=== PATIENT | female | born 2000 | race Caucasian/White ===

== ENCOUNTER 2023-03-22 14:30 | Inpatient (IN) ==
--- NOTE | 2023-03-22 14:37 | ED Triage Note ---
Date of Service March 22, 2023 History of Present Illness This patient was briefly evaluated while in triage. An abbreviated physical exam was performed. This patient is a 22-year-old Female who presents to the ED for evaluation of right lower abdominal pain, fevers, and vomiting. Seen in ED in [place] last week and diagnosed and treated for UTI. Suspected to have UPJ obstruction. She was referred to ED by Dr. Lockwood after being seen in his office just prior to arrival for admission and further management. Physical Exam Constitutional: alert and oriented x3. mild distress secondary to pain. Respiratory: lungs are clear to auscultation without wheezes, rhonchi, or rales bilaterally. equal chest rise. normal respiratory effort, no accessory muscle use. Cardiovascular: normal heart sounds without murmur. regular rate and rhythm. GI: abdomen is soft, nondistended. Tender to palpation RLQ. nl bowel sounds present throughout. No palpable masses. No rebound tenderness or guarding. R CVA tenderness Psych:appropriate mood and affect. Initial orders for labs and / or imaging were placed and patient was placed in the waiting area until a bed is available. Please see further documentation for the full ED course.
[2023-03-22 15:11] LABS: Basophils # (auto) 0.06 K/uL (0-0.2); Basophils % (auto) 0.5 %; Eosinophils # (auto) 0.11 K/uL (0-0.50); Hematocrit (blood only) 33.3 % (37.0-47.0); Hemoglobin 11.2 g/dl (12.0-16.0); Immature Granulocytes # (auto) 0.12 K/uL (0.01-0.20); Lymphocytes # (auto) 0.97 K/uL (1.2-3.4); Lymphocytes % (auto) 8.5 %; Mean Corpuscular Hemoglobin 30.9 pg (25.0-34.0); Mean Corpuscular Hgb Conc 33.6 g/dL (32.0-36.0); Mean Corpuscular Volume 91.7 fL (80.0-100.0); Mean Platelet Volume 9.8 fL (9.4-12.4); Monocytes # (auto) 1.14 K/uL (0.11-0.59); Monocytes % (auto) 9.9 %; Neutrophils # (auto) 9.07 K/uL (1.40-6.50); Neutrophils % (auto) 79.1 %; Platelet Count 283 K/uL (130-400); RDW Coefficient of Variation 13.1 % (11.5-14.5); RDW Standard Deviation 43.9 fL (36.4-46.3); Red Blood Count 3.63 M/uL (4.20-5.40); White Blood Count 11.47 K/ul (4.8-10.8)
[2023-03-22 15:25] LABS: Albumin Globulin Ratio 0.9 (0.9-2); Albumin Level 3.5 gm/dl (3.4-5.0); BUN Creatinine Ratio 13.4 (10-20); Bilirubin,Total 0.4 mg/dl (0.2-1.0); Calcium 9.2 mg/dl (8.6-10.3); Creatinine Clr Calc Pharmacy 102.2 ml/min; Est GFR (African American) 119.4 ml/min; Potassium 3.8 mmol/L (3.5-5.1); Total Protein 7.5 gm/dl (6.0-8.3)
[2023-03-22] MEDS ORDERED: ONDANSETRON INJ 2 MG/ML 2 ML VIAL IV STA (16:46)
[2023-03-22] MEDS ORDERED: SODIUM CHLORIDE 0.9% 1000ML 1,000 ML IV ONE ×2 (16:46→17:08)
[2023-03-22] MEDS ORDERED: ACETAMINOPHEN 1,000 MG/100 ML VIAL IV STA (16:46)
[2023-03-22] MEDS ORDERED: MoRPHine SULFATE 4 MG/ML 1 ML CARP\\VIAL IV STA (16:46)
--- NOTE | 2023-03-22 16:59 | Emergency Department Note ---
History of Present Illness General Chief complaint: Illness Stated complaint: KIDNEY BLOCKAGE Time Seen by Provider: 03/22/23 16:30 History of Present Illness 22 year old female who presents to ED today following referral by Dr. Lockwood, Urology, for evaluation of right flank pain, fevers, and vomiting. Patient po white being evaluated at [facility] ED on Wednesday for similar symptoms. Work up including CT abd/pelvis demonstrated chronic right UPJ obstruction and was placed on Cefuroxime for presumed UTI. She was referred to Urology for further management of UPJ obstruction. She was seen in Dr. Lockwood's office this afternoon with continued right flank pain and fevers prompting ED referral. She reports taking the prescribed antibiotic as instructed. She has also been taking prescribed Percocet without much relief in her pain. Pain remains in the right flank with radiation into her lower abdomen. Fevers/chills, vomiting started this past Wednesday. Home Medications Medication Instructions Recorded Confirmed Type cefuroxime axetil 500 mg tablet 500 mg PO BID 03/22/23 03/22/23 History hydrocodone 5 mg-acetaminophen 325 1 tab PO BID PRN Pain 03/22/23 03/22/23 History mg tablet Allergies Allergy/AdvReac Type Severity Reaction Status Date / Time No Known Allergies Allergy Unverified 03/22/23 13:27 Past Med/Surg History Medical History No significant medical problems Surgical History No significant past surgical history Social History Smoking Status: Never smoker Second Hand Exposure: No; Do You Dip or Chew Tobacco: No; Tobacco Cessation Education Requested by Patient: No Hx Alcohol Use: No Hx Substance Use: No Preferred Language: Romanian Communication Ability: Effective Customer Service Representative Required: No Beliefs That Will Affect Care: None Current Living Situation: Family and Other Current Living Situation Comment: college student , [place] Other Information That Helps Us Care for You: No Feels Safe at Home: Yes Safety Concerns: Feels Safe At This Time Assistive Devices: None Physical Exam Vital Signs Vital Signs - 24 hr 03/22/23 14:34 03/22/23 17:02 Temperature 37.9 C H 39.4 C H Temperature Source Oral Oral Pulse Rate 108 H Pulse Rate [Finger] 105 H Respiratory Rate 20 18 Respiratory Effort / Characteristics Non-Labored Spontaneous Respiratory Depth Normal Blood Pressure 116/76 Blood Pressure [Right Arm] 124/72 Blood Pressure Mean 89 Blood Pressure Mean [Right Arm] 89 Pulse Oximetry 98 100 Oxygen Delivery Method Room Air Room Air Sepsis Recent Fever Within 48 Hours Yes Sepsis New/Unexplained Change in Mental Status N/A Sepsis Action Taken by Nursing No Action Required Constitutional: alert and oriented x3. moderate distress secondary to pain. Ill appearing HEENT: normocephalic, atraumatic. normal conjunctiva.PERRLA. EOM's grossly intact. TMs pearly sneed without effusion. Pharynx pink without exudate. Tonsils nonenlarged. Mucus membranes moist Respiratory: lungs are clear to auscultation without wheezes, rhonchi, or rales bilaterally. equal chest rise. normal respiratory effort, no accessory muscle use. Cardiovascular: normal heart sounds without murmur. regular rate and rhythm. GI: abdomen is soft, nondistended. Diffuse lower abdominal tenderness, RLQ > L. No palpable masses. No rebound tenderness or guarding. R CVA tenderness Psych:appropriate mood and affect. Course Administered Medications Acetaminophen (Acetaminophen 325 Mg Tab) 650 mg PO Q4H PRN PRN Reason: Pain or Fever Stop: 04/21/23 20:39 Last Admin: 03/22/23 23:36 Dose: 650 mg Documented By: MAREN Cefepime HCl 2,000 mg/ Syringe 20 mls @ 5 mls/min IV Q8H [facility]; Protocol Stop: 04/02/23 01:59 Last Admin: 03/23/23 10:42 Dose: 5 mls/min Documented By: Admin: 03/23/23 02:04 Dose: 5 mls/min Documented By: MAREN Lactated Ringer's (Lr) 1,000 mls @ 125 mls/hr IV .Q8H [facility] Stop: 04/21/23 22:59 Last Admin: 03/23/23 07:10 Dose: 125 mls/hr Documented By: Infusion: 03/23/23 07:00 Dose: 125 mls/hr Documented By: Admin: 03/22/23 23:00 Dose: 125 mls/hr Documented By: MAREN Vancomycin HCl 1,250 mg/ (Sodium Chloride) 275 mls @ 200 mls/hr IV Q12H [facility]; Protocol Stop: 04/01/23 21:59 Last Infusion: 03/23/23 12:06 Dose: 0 mls/hr Documented By: Admin: 03/23/23 10:43 Dose: 200 mls/hr Documented By: RAZ Morphine Sulfate (Morphine Sulfate 2 Mg/Ml Carp) 2 mg IV Q3H PRN PRN Reason: Pain (1,2,3,4,5) & Pre PT Stop: 04/05/23 20:39 Last Admin: 03/23/23 12:17 Dose: 2 mg Documented By: RAZ Ondansetron HCl (Ondansetron Inj 2 Mg/Ml 2 Ml Vial) 4 mg IV Q6H PRN PRN Reason: Nausea Stop: 04/21/23 20:39 Last Admin: 03/23/23 10:42 Dose: 4 mg Documented By: Admin: 03/22/23 23:41 Dose: 4 mg Documented By: MAREN Discontinued Medications Sodium Chloride (Nss 1000ml) 1,000 mls @ 999 mls/hr IV .Q1H1M ONE Stop: 03/22/23 17:46 Last Infusion: 03/22/23 19:04 Dose: 0 mls/hr Documented By: Admin: 03/22/23 17:10 Dose: 999 mls/hr Documented By: DANIEL Acetaminophen (Ofirmev) 1,000 mg in 100 mls @ 400 mls/hr IV NOW STA Stop: 03/22/23 17:00 Last Infusion: 03/22/23 19:03 Dose: 0 mls/hr Documented By: Admin: 03/22/23 17:10 Dose: 400 mls/hr Documented By: DANIEL Sodium Chloride (Nss 1000ml) 1,000 mls @ 999 mls/hr IV .Q1H1M ONE Stop: 03/22/23 18:08 Last Infusion: 03/22/23 19:28 Dose: 0 mls/hr Documented By: Admin: 03/22/23 18:19 Dose: 999 mls/hr Documented By: DANIEL Cefepime HCl (Maxipime) 2,000 mg in 20 mls @ 5 mls/min IV NOW STA; Protocol Stop: 03/22/23 17:21 Last Admin: 03/22/23 17:40 Dose: 5 mls/min Documented By: DANIEL Vancomycin HCl 1,250 mg/ (Sodium Chloride) 525 mls @ 200 mls/hr IV NOW ONE Stop: 03/22/23 19:55 Last Admin: 03/22/23 17:41 Dose: 200 mls/hr Documented By: DANIEL Lactated Ringer's (Lr) 1,000 mls @ 999 mls/hr IV .Q1H1M ONE Stop: 03/22/23 21:21 Last Infusion: 03/22/23 22:00 Dose: 0 mls/hr Documented By: Admin: 03/22/23 20:58 Dose: 999 mls/hr Documented By: MAREN Vancomycin HCl 1,000 mg/ (Sodium Chloride) 270 mls @ 200 mls/hr IV Q12H [facility]; Protocol Stop: 04/01/23 21:59 Last Infusion: 03/22/23 23:01 Dose: 0 mls/hr Documented By: Admin: 03/22/23 21:40 Dose: 200 mls/hr Documented By: MAREN Morphine Sulfate (Morphine Sulfate 4 Mg/Ml 1 Ml Carp\Vial) 4 mg IV NOW STA Stop: 03/22/23 16:47 Last Admin: 03/22/23 17:10 Dose: 4 mg Documented By: DANIEL Ondansetron HCl (Ondansetron Inj 2 Mg/Ml 2 Ml Vial) 4 mg IV NOW STA Stop: 03/22/23 16:47 Last Admin: 03/22/23 17:10 Dose: 4 mg Documented By: DANIEL Medical Decision Making Differential Diagnosis UPJ obstruction, pyelonephritis, Appendicitis, ovarian cyst, ovarian torsion, ectopic , TOA, PID, sepsis, diverticulitis, constipation, as well as other pathologies. Laboratory Data Attestation: I reviewed the patient's lab results. 03/22/23 14:48 03/22/23 14:48 Lab Results 03/22/23 03/22/23 03/22/23 Range/Units 14:48 14:48 14:48 WBC 11.47 H (4.8-10.8) K/ul RBC 3.63 L (4.20-5.40) M/uL Hgb 11.2 L (12.0-16.0) g/dl Hct 33.3 L (37.0-47.0) % MCV 91.7 (80.0-100.0) fL MCH 30.9 (25.0-34.0) pg MCHC 33.6 (32.0-36.0) g/dL RDW Std Deviation 43.9 (36.4-46.3) fL RDW Coeff of Katarina 13.1 (11.5-14.5) % Plt Count 283 (130-400) K/uL MPV 9.8 (9.4-12.4) fL Immature Gran % (Auto) 1.0 % Neut % (Auto) 79.1 % Lymph % (Auto) 8.5 % [place] % (Auto) 9.9 % Eos % (Auto) 1.0 % Baso % (Auto) 0.5 % Neut # (Auto) 9.07 H (1.40-6.50) K/uL Lymph # (Auto) 0.97 L (1.2-3.4) K/uL [place] # (Auto) 1.14 H (0.11-0.59) K/uL Eos # (Auto) 0.11 (0-0.50) K/uL Baso # (Auto) 0.06 (0-0.2) K/uL Immature Gran # (Auto) 0.12 (0.01-0.20) K/uL Sodium 133 L (136-145) mmol/L Potassium 3.8 (3.5-5.1) mmol/L Chloride 98 (98-107) mmol/L Carbon Dioxide 26 (21-32) mmol/L Anion Gap 9 (3-11) BUN 11 (6-23) mg/dl Creatinine 0.82 (0.6-1.2) mg/dl Est Cr Clr Drug Dosing 102.2 ml/min Est GFR ( Amer) 119.4 ml/min Est GFR (Non-Af Amer) 103.0 ml/min BUN/Creatinine Ratio 13.4 (10-20) Glucose 90 (70-99(Fasting)) mg/dl Lactate (0.4-2.0) mmol/L Calcium 9.2 (8.6-10.3) mg/dl Total Bilirubin 0.4 (0.2-1.0) mg/dl AST 30 (13-39) U/L ALT 27 (7-52) U/L Alkaline Phosphatase 105 H (34-104) U/L Total Protein 7.5 (6.0-8.3) gm/dl Albumin 3.5 (3.4-5.0) gm/dl Globulin 4.0 (2.5-4.0) gm/dl Albumin/Globulin Ratio 0.9 (0.9-2) Procalcitonin 1.96 H (0-0.5) ng/ml SARS-CoV-2, RNA, NAAT (NEGATIVE) 03/22/23 03/22/23 Range/Units 14:48 17:37 WBC (4.8-10.8) K/ul RBC (4.20-5.40) M/uL Hgb (12.0-16.0) g/dl Hct (37.0-47.0) % MCV (80.0-100.0) fL MCH (25.0-34.0) pg MCHC (32.0-36.0) g/dL RDW Std Deviation (36.4-46.3) fL RDW Coeff of Katarina (11.5-14.5) % Plt Count (130-400) K/uL MPV (9.4-12.4) fL Immature Gran % (Auto) % Neut % (Auto) % Lymph % (Auto) % [place] % (Auto) % Eos % (Auto) % Baso % (Auto) % Neut # (Auto) (1.40-6.50) K/uL Lymph # (Auto) (1.2-3.4) K/uL [place] # (Auto) (0.11-0.59) K/uL Eos # (Auto) (0-0.50) K/uL Baso # (Auto) (0-0.2) K/uL Immature Gran # (Auto) (0.01-0.20) K/uL Sodium (136-145) mmol/L Potassium (3.5-5.1) mmol/L Chloride (98-107) mmol/L Carbon Dioxide (21-32) mmol/L Anion Gap (3-11) BUN (6-23) mg/dl Creatinine (0.6-1.2) mg/dl Est Cr Clr Drug Dosing ml/min Est GFR ( Amer) ml/min Est GFR (Non-Af Amer) ml/min BUN/Creatinine Ratio (10-20) Glucose (70-99(Fasting)) mg/dl Lactate 1.3 (0.4-2.0) mmol/L Calcium (8.6-10.3) mg/dl Total Bilirubin (0.2-1.0) mg/dl AST (13-39) U/L ALT (7-52) U/L Alkaline Phosphatase (34-104) U/L Total Protein (6.0-8.3) gm/dl Albumin (3.4-5.0) gm/dl Globulin (2.5-4.0) gm/dl Albumin/Globulin Ratio (0.9-2) Procalcitonin (0-0.5) ng/ml SARS-CoV-2, RNA, NAAT NEGATIVE (NEGATIVE) MDM Narrative 22-year-old female who presents emergency department following referral by outpatient Urology for evaluation of right flank pain with associated fevers and vomiting. Review of pertinent visits and past medical history performed. Vital signs in ED demonstrate tachycardia as well as febrile 37.9. She is normotensive and sating well on room air. IV access was established and labs were obtained. CBC demonstrates mild leukocytosis of 11 with left shift. No acute anemia. CMP without significant electrolyte abnormalities. Renal function within normal limits. Pro-Ananth elevated at 2. Lactate 1.3. Blood cultures were obtained and pending. Urinalysis was ordered but patient was unable to provide while in ED. Patient did have CT abdomen/pelvis performed at outside hospital on 03/18/2023. Results were personally reviewed and per report consistent with a chronic UPJ obstruction. No evidence of nephrolithiasis. Given patient's symptoms are unchanged, I did not feel repeat advanced imaging was warranted at this time. Clinically, patient is toxic appearing in moderate distress secondary to pain. Mentating well. She is diffusely tender over the lower abdomen worse in the RLQ with positive R CVA tenderness. She was given IV Tylenol, morphine, Zofran and 2 L of IV fluids. Case was discussed with on-call urology, Dr. Cotto, who was already aware of patient and suspected recurrent acute pyelonephritis and recommended admission to hospital for pain control and IV antibiotics. He did not see need for any further imaging. Case was discussed with hospitalist, Dr. Daniels, who reviewed case and graciously accept patient onto his service. Upon reevaluation, she reports mildly improved pain following therapies. Remains hemodynamically stable. Her and mother were updated on all exam findings and test results as well as recommendations from urology. They are agreeable to admission for further management. She was started on IV cefepime and vancomycin for broad-spectrum antibiotic coverage. Her pain is currently adequately controlled with IV morphine and Tylenol. She was admitted to the hospital in stable condition. Case was discussed with attending, Dr. Mclaughlin, who agreed with work-up and treatment plan. Impression & Plan Obstruction of right ureteropelvic junction (UPJ), Nausea & vomiting Discharge Plan Visit Data Chief Complaint: Illness Stated Complaint: KIDNEY BLOCKAGE ED Provider: Brooks Mclaughlin ED Midlevel Provider: Sue Alonso Discharge Problem: Obstruction of right ureteropelvic junction (UPJ), Nausea & vomiting Patient Disposition: Admitted As Inpatient Discharge Instructions Interventions: ED Discharge Assessment Last Done: 03/22/23 20:08
[2023-03-22] MEDS ORDERED: VANCOMYCIN HCL 1,250 MG in SODIUM CHLORIDE 0.9% 500 ML IV ONE (17:18)
[2023-03-22] MEDS ORDERED: CEFEPIME 2,000 MG/20 ML VIAL IV STA (17:18)
[2023-03-22] MEDS ORDERED: VANCOMYCIN CONSULT ACTIVE PRN (17:18)
[2023-03-22] MEDS ORDERED: LACTATED RINGER'S 1,000 ML IV ONE (20:21)
[2023-03-22] MEDS ORDERED: ACETAMINOPHEN 325 MG TAB PO PRN (20:40)
--- NOTE | 2023-03-22 21:00 | History & Physical Report ---
Date of Service March 22, 2023 Assessment & Plan (1) Sepsis: Plan: Source right sided pyelonephritis Lactate 1.3 Empiric vancomcyin and cefepime pending urine and blood cultures (2) Acute pyelonephritis: Plan: Right CVA tenderness (3) Obstruction of right ureteropelvic junction (UPJ): Plan: Discussed with Dr Cotto and recommended antibiotics only and no further imaging required. If patient getting worse overnight recommend stat urology evaluation and this was handed over to the resident as if it is complete patient will need a stent. Plan VTE Prophylaxis - low risk Diet - regular Disposition - admit to PCU Admission and Anticipated Discharge Date Admission Date: March 22, 2023 History of Present Illness Chief Complaint: Right flank tenderness, fever, chills Primary Care Provider: Lit Elizabeth Friedman is a 22 year old female who presents to the ER with fever, chills and flank pain. Initially symptoms of dysuria started on Wednesday (7 days ago). Initially she took azo which helped her symptoms for 2 days. After stopping Azo she started having right abdominal and flank pain. She went to [facility] ER where she was diagnosed with a UTI and CT showed chronic right UPJ obstruction. She was discharged on cefuroxime. Unfortunately UA was not cultured. She was discharged from the ER with advice to follow up with urology. Unfortunately the urologist she was set up with did have an open appointment until March. Eventually she managed to get an appointment with Dr Lockwood today. Her symptoms of right flank pain have in the interim become more severe and she started having fever and chills over the weekend. Dr Lockwood appropriately sent the patient to the ER for further evaluation. UA was taken in the office but I ahve been unable to track down this sample to be cultured. Allergies Allergy/AdvReac Type Severity Reaction Status Date / Time No Known Allergies Allergy Unverified 03/22/23 13:27 Home Medications Medication Instructions Recorded Confirmed Type cefuroxime axetil 500 mg tablet 500 mg PO BID 03/22/23 03/22/23 History hydrocodone 5 mg-acetaminophen 325 1 tab PO BID PRN Pain 03/22/23 03/22/23 History mg tablet Past Med/Surg History Medical History No significant medical problems Surgical History No significant past surgical history Social History Smoking Status: Never smoker Second Hand Exposure: No; Do You Dip or Chew Tobacco: No; Tobacco Cessation Education Requested by Patient: No Hx Alcohol Use: No Hx Substance Use: No Preferred Language: Malay Communication Ability: Effective Ship Worker Required: No Beliefs That Will Affect Care: None Current Living Situation: Family and Other Current Living Situation Comment: college student Jasmin Other Information That Helps Us Care for You: No Feels Safe at Home: Yes Safety Concerns: Feels Safe At This Time Assistive Devices: None Review of Systems Review of Systems: All systems reviewed & are unremarkable except as noted in HPI & below Physical Exam Constitutional: WD/WN, vitals as above Eyes: PERRL, conjunctivae normal, anicteric sclerae ENMT: external ear and nose normal, oropharynx normal Neck: trachea midline, no thyromegaly Respiratory: normal respiratory effort, lungs clear to auscultation Cardiovascular: RRR, no murmur, no edema Gastrointestinal (Abdomen): Inspection/Auscultation: abdomen normal to inspection; abdomen not distended Percussion/Palpation: + abdomen tender (Right sided) and abdomen soft; no guarding and abdomen not rigid Musculoskeletal: no cyanosis or clubbing, extremities motor strength 5/5 Skin: no rashes, warm and dry Neurologic: moves all extremities and awake; not confused Psychiatric: A+Ox3, euthymic affect Genitourinary: + CVA tenderness (right) Results & Data Results & Data Vital Signs (Past 12 Hours) Vital Signs Temp Pulse Pulse Resp BP BP Pulse Ox 03/22/23 19:02 37.3 C 97 H 18 100/65 98 03/22/23 17:02 39.4 C H 105 H 18 124/72 100 03/22/23 14:34 37.9 C H 108 H 20 116/76 98 O2 Del Method 03/22/23 19:02 Room Air 03/22/23 17:02 Room Air 03/22/23 14:34 Room Air Laboratory Results Abnormal lab results 03/22/23 03/22/23 03/22/23 Range/Units 14:48 14:48 14:48 WBC 11.47 H (4.8-10.8) K/ul RBC 3.63 L (4.20-5.40) M/uL Hgb 11.2 L (12.0-16.0) g/dl Hct 33.3 L (37.0-47.0) % Neut # (Auto) 9.07 H (1.40-6.50) K/uL Lymph # (Auto) 0.97 L (1.2-3.4) K/uL [place] # (Auto) 1.14 H (0.11-0.59) K/uL Sodium 133 L (136-145) mmol/L Alkaline Phosphatase 105 H (34-104) U/L Procalcitonin 1.96 H (0-0.5) ng/ml Urine Protein (Negative) Urine Ketones (Negative) U Epithel Cells (Auto) (0-5) /lpf 03/22/23 Range/Units 21:45 WBC (4.8-10.8) K/ul RBC (4.20-5.40) M/uL Hgb (12.0-16.0) g/dl Hct (37.0-47.0) % Neut # (Auto) (1.40-6.50) K/uL Lymph # (Auto) (1.2-3.4) K/uL [place] # (Auto) (0.11-0.59) K/uL Sodium (136-145) mmol/L Alkaline Phosphatase (34-104) U/L Procalcitonin (0-0.5) ng/ml Urine Protein 1+ H (Negative) Urine Ketones 3+ H (Negative) U Epithel Cells (Auto) >30 H (0-5) /lpf Medications Administered ER Medications Given: NSS 1L bolus Morphine 4mg IV Acetaminophen 1g IV NSS 1L bolus Cefepime 2g IV Vancomycin 1250mg IV Code Status & VTE Plan Code Status Full VTE Prophylaxis Plan VTE Prophylaxis will be ordered: No PG Care Time/CCT Total # of Minutes Spent Total Time Spent with Patient: Total time spent is greater than 50% in coordination of care (as documented) at patient's floor/unit and/or counseling patient: Coding Level of Care Code 57568 INT INP/OBS CARE 3/75MIN Diagnoses Sepsis A41.9 Acute pyelonephritis N10 Obstruction of right ureteropelvic junction (UPJ) N13.5
[2023-03-22] MEDS ORDERED: VANCOMYCIN HCL 1,000 MG in SODIUM CHLORIDE 0.9% 250 ML IV SCH (22:00)
[2023-03-22 22:34] LABS: Appearance Urine Clear (Clear); Bacteria Urine Automated Negative (Negative); Bilirubin Urine Negative (Negative); Blood Urine Negative (Negative); Color Urine Dark Yellow; Epithelial Cell Urine Auto >30 /lpf (0-5); Glucose Urine UA Negative (Negative); Ketones Urine 3+ (Negative); Leukocyte Esterase Urine Negative (Negative); Nitrite Urine Negative (Negative); Protein Urine 1+ (Negative); RBC Urine Automated 0-4 /hpf (0-4); Specific Gravity Urine 1.028 (1.000-1.030); Urobilinogen Urine Negative (Negative); pH Urine 6.5 (4.5-7.5)
[2023-03-22] MEDS: LACTATED RINGER'S 1,000 ML IV SCH (23:00)
[2023-03-22] MEDS: ONDANSETRON INJ 2 MG/ML 2 ML VIAL IV PRN (23:41)
[2023-03-23] MEDS: CEFEPIME 2,000 MG in SYRINGE 0 ML IV SCH ×2 (02:04→10:42)
[2023-03-23 06:19] LABS: Basophils # (auto) 0.09 K/uL (0-0.2); Basophils % (auto) 0.6 %; Eosinophils # (auto) 0.07 K/uL (0-0.50); Eosinophils % (auto) 0.4 %; Hematocrit (blood only) 30.4 % (37.0-47.0); Immature Granulocytes # (auto) 0.22 K/uL (0.01-0.20); Immature Granulocytes % (auto) 1.4 %; Lymphocytes # (auto) 1.39 K/uL (1.2-3.4); Lymphocytes % (auto) 8.5 %; Mean Corpuscular Hgb Conc 32.9 g/dL (32.0-36.0); Mean Corpuscular Volume 94.1 fL (80.0-100.0); Mean Platelet Volume 9.5 fL (9.4-12.4); Monocytes # (auto) 1.66 K/uL (0.11-0.59); Monocytes % (auto) 10.2 %; Neutrophils # (auto) 12.85 K/uL (1.40-6.50); Neutrophils % (auto) 78.9 %; Platelet Count 246 K/uL (130-400); RDW Coefficient of Variation 13.5 % (11.5-14.5); RDW Standard Deviation 46.6 fL (36.4-46.3); Red Blood Count 3.23 M/uL (4.20-5.40); White Blood Count 16.28 K/ul (4.8-10.8)
[2023-03-23 06:36] LABS: BUN Creatinine Ratio 11.1 (10-20); Calcium 8.5 mg/dl (8.6-10.3); Creatinine Clr Calc Pharmacy 119.6 ml/min; Est GFR (African American) 139.7 ml/min; Est GFR (Non-African American) 120.6 ml/min; Potassium 3.7 mmol/L (3.5-5.1)
[2023-03-23] MEDS: LACTATED RINGER'S 1,000 ML IV SCH ×3 (07:10→23:02)
--- NOTE | 2023-03-23 07:33 | Hospitalist Progress Note ---
Date of Service March 23, 2023 Assessment & Plan (1) Sepsis: Plan: Sepsis a/w Acute R Pyelonephritis - A/w R. Pyelonephritis - Leukocytosis/Fever/Tachycardia + Source (R Pyelonephritis) - Lactate 1.3 (wnl) on admission - Urinalysis - No Nitrites, No Leuk Est, > 30 Epithelial Cells - Started on Empiric Vancomycin/Cefepime - Blood Cultures Pending --- Leukocytosis rising (WBC 16) --- Continue Empiric Abx --- Pending Blood Cultures (2) Acute pyelonephritis: (3) Obstruction of right ureteropelvic junction (UPJ): Plan: R. UPJ Obstruction - Urology (Dr. Conti) consulted on admission * Recommended conservative management with fluids and abx * Recommended no further imaging at that time - Patient remained stable overnight (no nausea, emesis, or increasing abd pain, vitals stable) --- Re-evaluated by Urology, recommending ongoing conservative management and ADAT (4) C. difficile diarrhea: Plan: - Acute, foul smelling diarrhea noted this morning - History indicates this is patient's third course of antibiotics since January - C diff testing ordered --- C Diff Gene positive, toxin positive --- Discontinued IV Vancomycin, started on PO Vancomycin 125mg PO QID Plan VTE Prophylaxis - Low risk Diet - Regular Disposition - PCU Admission and Anticipated Discharge Date Admission Date: March 22, 2023 Supervising Physician Co-Signing Physician Notes I personally examined the patient and verified all fuentes points of history and exam, discussed case, and agree with decision making with Dr Bailey Abdominal pain, nausea, diarrhea. Right flank pain improving. Vitals noted, in general she is awake and alert pleasant but appears uncomfortable and nauseated. HEENT normocephalic atraumatic mucous membranes moist. Breathing unlabored no accessory muscle use good effort. Skin shows no rashes no pallor or icterus. Sepsisdue to both pyelonephritis and C. difficile colitiscontinue ceftriaxone and started p.o. vancomycin. Suspect she is more septic from C. difficile than pyelo at this point. Given that the pyeloseems to be improving, overall her dominant picture is that of the C. difficile, she is not bacteremic, etc.I doubt the probable ureteral stricture is playing much of a role right now, although appreciate urology following. Otherwise as above Subjective Mandy Friedman is a 22F with no known past medical history who presented for evaluation of right flank pain and was found to have right sided pyelonephritis and UPJ obstruction. 03/23: Mandy was resting comfortably in bed with her mother at bedside upon arrival. She notes that she is feeling 'somewhat better' since admission, she is no longer experiencing fevers/chills. She notes that she is hungry/thirsty. She describes ongoing R sided flank/abdominal pain, but notes this is improving. She continues to urinate regularly, but notes that she is having large amounts of liquid diarrhea with a foul smell. Patient's mother notes that she has been on antibiotics (Augmentin, Cephalexin) since mid-January. Patient notes that each time they hang a new bag on her IV she has an episode of profuse diarrhea. Denies chest pain, dyspnea, headache, or lightheadedness. Review of Systems Review of Systems: See HPI Physical Exam Physical Exam: Gen: NAD, alert, interactive HEENT: Supple, no LAD, no thyromegaly Resp:Non-labored, no wheezing/rhonchi/rales, CTAB CV:RRR, normal S1/S2, no M/R/G Abd: Soft, non-distended, LLQ/RLQ TTP, active bowels, CVA tenderness (R>L), no masses Extr: 2+ dp bilaterally, no edema Skin: No rashes lesions or erythema Results & Data Results & Data Vital Signs (Past 12 Hours) Vital Signs Temp Pulse Pulse Resp BP Pulse Ox O2 Del Method 03/23/23 03:00 36.9 C 98 H 23 110/74 98 Room Air 03/22/23 23:00 38.2 C H 101 H 19 111/71 99 Room Air 03/22/23 23:05 104 H 03/22/23 21:00 102 H 03/22/23 20:48 36.9 C 106 H 18 104/64 95 Room Air Resident Activity Tracking Resident Involvement: Resident Care Provided Care Provided: Adult [facility] Medicine
--- NOTE | 2023-03-23 08:51 | Urology Consultation ---
Date of Consultation March 23, 2023 Assessment & Plan (1) Acute pyelonephritis: (2) Obstruction of right ureteropelvic junction (UPJ): (3) Complicated UTI (urinary tract infection): Plan 22yo/F with a likely right UPJ obstruction admitted with suspected acute right pyelonephritis. At present, she is afebrile and hemodynamically stable. Labs today show a leukocytosis of 16.28, hemoglobin 10.0, creatinine 0.72. Blood cultures are pending. I do not see a pending urine culture. Found to be Cdiff positive 03/23. Also tested positive for adenovirus on 02/27/23. On vancomycin and ceftriaxone. Continue to follow cultures and tailor antibiotics per sensitivities. No plan for urological intervention at this time. Recommend continue with supportive care and antibiotic therapy. Continue treatment for C. difficile infection. Urology will follow. Supervising Physician Co-Signing Physician Notes Discussed patient with SYEDA. Agree with plan. History of Present Illness Attending Physician: Rd Ritter DO History of Present Illness 22-year-old female who was seen by Dr. Lockwood in the urology office on 03/22/2023 for evaluation of right abdominal pain, nausea, vomiting, subjective fevers and a CT scan showing significant hydronephrosis, thin parenchyma which likely represents a UPJ obstruction. Given her poorly controlled pain and subjective fevers, she was advised to report to the emergency department for further evaluation. She was admitted to the medicine service with acute right pyelonephritis. Labs on arrival showed a leukocytosis of 11.47 and creatinine 0.82. Blood cultures are pending. She is on antibiotics including vancomycin and ceftriaxone. 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 No acute inflammatory process identified. No stone disease. Patient examined at bedside this morning. Awake, resting in bed on arrival. No acute distress. Parent at bedside. Reports some improvement of her right abdominal pain. Has been NPO. Tmax 39.4 yesterday evening. Afebrile this morning. Voiding without issue. Denies hematuria or dysuria. Per chart review, patient tested positive for adenovirus on 02/27/2023. She is also C. difficile positive. Allergies Allergy/AdvReac Type Severity Reaction Status Date / Time No Known Allergies Allergy Unverified 03/22/23 13:27 Home Medications Medication Instructions Recorded Confirmed Type cefuroxime axetil 500 mg tablet 500 mg PO BID 03/22/23 03/22/23 History hydrocodone 5 mg-acetaminophen 325 1 tab PO BID PRN Pain 03/22/23 03/22/23 History mg tablet Patient History Medical History No significant medical problems Surgical History No significant past surgical history Social History Smoking Status: Never smoker Second Hand Exposure: No; Do You Dip or Chew Tobacco: No; Tobacco Cessation Education Requested by Patient: No Hx Alcohol Use: No Hx Substance Use: No Preferred Language: Tuvaluan Communication Ability: Effective Cardiac Monitor Technician Required: No Beliefs That Will Affect Care: None Current Living Situation: Family and Other Current Living Situation Comment: college student , Jasmin Other Information That Helps Us Care for You: No Feels Safe at Home: Yes Safety Concerns: Feels Safe At This Time Assistive Devices: None Review of Systems Review of Systems: All systems reviewed & are unremarkable except as noted in HPI & below Physical Exam Constitutional: well developed and well nourished; no acute distress Neck: normal visual inspection Respiratory: normal respiratory effort; no respiratory distress and no labored breathing Gastrointestinal (Abdomen): Inspection/Auscultation: abdomen normal to inspection Musculoskeletal: Head/Neck/Chest: normocephalic Skin: No visible rashes or lesions to exposed skin areas Neurologic: moves all extremities and awake Psychiatric: A+Ox3, euthymic affect Genitourinary: Right sided flank tenderness with palpation Results & Data Vital Signs (Past 12 Hours) Vital Signs Temp Pulse Pulse Resp BP Pulse Ox O2 Del Method 03/23/23 08:41 79 03/23/23 08:22 36.9 C 65 17 114/70 98 Room Air 03/23/23 03:00 36.9 C 98 H 23 110/74 98 Room Air 03/22/23 23:00 38.2 C H 101 H 19 111/71 99 Room Air 03/22/23 23:05 104 H 03/22/23 21:00 102 H PG Care Time/CCT Total # of Minutes Spent Total Time Spent with Patient: Total time spent is greater than 50% in coordination of care (as documented) at patient's floor/unit and/or counseling patient: Coding Level of Care Code 22743 IN/OBS CONSULT LVL 3,45M Diagnoses Acute pyelonephritis N10 Obstruction of right ureteropelvic junction (UPJ) N13.5 Complicated UTI (urinary tract infection) N39.0
[2023-03-23] MEDS ORDERED: VANCOMYCIN HCL 1,250 MG in SODIUM CHLORIDE 0.9% 250 ML IV SCH (10:00)
[2023-03-23] MEDS: ONDANSETRON INJ 2 MG/ML 2 ML VIAL IV PRN ×3 (10:42→21:01)
[2023-03-23 12:15] LABS: Cdiff Toxin B Gene (2yr or >) Positive Cdiff Gene (Neg)
[2023-03-23] MEDS: MoRPHine SULFATE 2 MG/ML CARP IV PRN (12:17)
[2023-03-23 12:46] LABS: Cdiff Antigen Positive
[2023-03-23 12:48] LABS: Cdiff Toxin A+B Positive Cdiff Toxin (Negative)
[2023-03-23] MEDS: RASPBERRY SYRUP 5 ML UDP PO SCH ×3 (13:45→23:02)
[2023-03-23] MEDS: VANCOMYCIN HCL 125 MG/2.5ML SOLN PO SCH ×3 (13:45→23:02)
[2023-03-23] MEDS: cefTRIAXone SODIUM 1,000 MG in DEXTROSE 5% AD-VAN 50 ML IV SCH (15:56)
[2023-03-23] MEDS ORDERED: PROMETHAZINE HCL 12.5 MG/10 ML UDP PO PRN (17:39)
[2023-03-23] MEDS: MoRPHine SULFATE 4 MG/ML 1 ML CARP\\VIAL IV PRN ×2 (17:54→21:00)
--- NOTE | 2023-03-23 19:16 | Billing Data ---
Date of Service March 23, 2023 Coding Level of Care Code 64319 SUB INP/OBS CARE MIN
[2023-03-23] MEDS: ACETAMINOPHEN 325 MG TAB PO SCH ×2 (19:47→23:02)
[2023-03-24] MEDS: MoRPHine SULFATE 4 MG/ML 1 ML CARP\\VIAL IV PRN ×4 (00:07→22:50)
[2023-03-24] MEDS: ACETAMINOPHEN 325 MG TAB PO SCH ×5 (03:17→19:50)
[2023-03-24] MEDS: VANCOMYCIN HCL 125 MG/2.5ML SOLN PO SCH ×3 (06:08→18:11)
[2023-03-24] MEDS: RASPBERRY SYRUP 5 ML UDP PO SCH ×3 (06:08→18:12)
[2023-03-24] MEDS: LACTATED RINGER'S 1,000 ML IV SCH ×3 (06:10→22:42)
[2023-03-24 06:40] LABS: Hematocrit (blood only) 26.9 % (37.0-47.0); Hemoglobin 9.1 g/dl (12.0-16.0); Mean Corpuscular Hemoglobin 30.8 pg (25.0-34.0); Mean Corpuscular Hgb Conc 33.8 g/dL (32.0-36.0); Mean Corpuscular Volume 91.2 fL (80.0-100.0); Mean Platelet Volume 9.7 fL (9.4-12.4); Platelet Count 247 K/uL (130-400); RDW Coefficient of Variation 13.4 % (11.5-14.5); Red Blood Count 2.95 M/uL (4.20-5.40); White Blood Count 18.23 K/ul (4.8-10.8)
--- NOTE | 2023-03-24 06:54 | Urology Progress Note ---
Date of Service March 24, 2023 Assessment & Plan (1) C. difficile diarrhea: (2) Obstruction of right ureteropelvic junction (UPJ): (3) Nausea & vomiting: Plan 22yo/F with a likely chronic right UPJ obstruction admitted from clinic due to concern for sepsis. No acute urologic intervention at this time. Patient subjectively is improving. She is afebrile with stable vitals. I suspect her continued elevation in leukocytosis is most likely related to her C. difficile. This UPJ obstruction is likely been chronic and something she has had for numerous years. Ideally would not put a stent in place as this will affect further imaging work-up and possible surgical repair. The ureteral stent placement would also be very challenging due to her dilated and tortuous ureter and may not be successful, which would then result in her needing to be transferred for right nephrostomy tube. Continue antibiotics and treating for C. difficile. Urology will continue to follow. Likely will get outside nuclear medicine Lasix scan to evaluate both function and for obstruction. This will determine if she needs a right pyeloplasty versus a nephrectomy. Admission and Anticipated Discharge Date Admission Date: March 22, 2023 Subjective No acute issues overnight. Patient looks markedly improved from when I saw her in clinic 2 days ago and she subjectively feels much better. Found to be positive for C. difficile yesterday. She is currently afebrile with stable vitals. Leukocytosis slightly up from 16.2-18.2. Creatinine stable at 0.65. Blood cultures are negative to date. Review of Systems Review of Systems: 14 point review of systems negative outside of what is listed above in HPI Physical Exam Physical Exam: General: Alert and oriented, no acute distress HEENT: Normocephalic, mucous membranes moist Pulmonary: Nonlabored respirations Abdomen: Nondistended, soft, nontender. No CVA tenderness. Extremities: Moves all 4 spontaneously Neuro: No gross deficits Skin: Warm, dry, no rashes noted Results & Data Vital Signs (Past 12 Hours) Vital Signs Temp Pulse Pulse Resp BP Pulse Ox O2 Del Method 03/24/23 03:20 37.4 C 98 H 14 106/71 98 Room Air 03/24/23 01:08 97 H 03/23/23 22:59 37.2 C 101 H 14 111/62 96 Room Air 03/23/23 21:09 36.9 C 03/23/23 19:26 38.2 C H 104 H 18 122/66 95 Room Air PG Care Time/CCT Total # of Minutes Spent Total Time Spent with Patient: Total time spent is greater than 50% in coordination of care (as documented) at patient's floor/unit and/or counseling patient: Coding Level of Care Code 36468 SUB INP/OBS CARE 2/35MIN Diagnoses C. difficile diarrhea A04.72 Obstruction of right ureteropelvic junction (UPJ) N13.5 Nausea & vomiting R11.2
--- NOTE | 2023-03-24 07:01 | Hospitalist Progress Note ---
Date of Service March 24, 2023 Assessment & Plan (1) Sepsis: Plan: Sepsis a/w Acute R Pyelonephritis - A/w R. Pyelonephritis - Leukocytosis/Fever/Tachycardia + Source (R Pyelonephritis) - Lactate 1.3 (wnl) on admission - Urinalysis - No Nitrites, No Leuk Est, > 30 Epithelial Cells - Started on Empiric Vancomycin/Cefepime - Blood Cultures Pending --- Leukocytosis rising (WBC 18.2) --- Continue Empiric Abx (Cefepime) --- Blood cultures negative at 24 hours (2) Acute pyelonephritis: (3) Obstruction of right ureteropelvic junction (UPJ): Plan: R. UPJ Obstruction - Urology (Dr. Conti) consulted on admission * Recommended conservative management with fluids and abx * Recommended no further imaging at that time - Patient remained stable overnight (no nausea, emesis, or increasing abd pain, vitals stable) --- Re-evaluated by Urology, recommending ongoing conservative management --- Patient's obstruction most likely 2/2 congenital structure, which is unli kayla to be complicating to patient's current clinical picture (4) C. difficile diarrhea: Plan: - Acute, foul smelling diarrhea noted this morning - History indicates this is patient's third course of antibiotics since January - C diff testing ordered --- C Diff Gene positive, toxin positive --- Continue PO Vancomycin 125mg PO QID, tolerating well Plan VTE Prophylaxis - Low risk Diet - Regular Disposition - PCU at present, anticipate discharge to home when symptoms controlled, patient afebrile, and WBC count downtrending Admission and Anticipated Discharge Date Admission Date: March 22, 2023 Supervising Physician Co-Signing Physician Notes I personally examined the patient and verified all fuentes points of history and exam, discussed case, and agree with decision making with Dr Bailey abdominal pain doing better diarrhea forming nausea improving - still needing zofran but doing better Vitals noted, in general she is awake and alert pleasant but appears uncomfortable and nauseated. HEENT normocephalic atraumatic mucous membranes moist. Breathing unlabored no accessory muscle use good effort. Skin shows no rashes no pallor or icterus. Sepsisdue to both pyelonephritis and C. difficile colitiscontinue ceftriaxone and p.o. vancomycin. Suspect she was more septic from C. difficile than pyelo at this point. overall improving Otherwise as above Subjective Mandy Friedman is a 22F with no known past medical history who presented for evaluation of right flank pain and was found to have right sided pyelonephritis and UPJ obstruction. 03/23: Mandy was resting comfortably in bed with her mother at bedside upon arrival. She notes that she is feeling 'somewhat better' since admission, she is no longer experiencing fevers/chills. She notes that she is hungry/thirsty. She describes ongoing R sided flank/abdominal pain, but notes this is improving. She continues to urinate regularly, but notes that she is having large amounts of liquid diarrhea with a foul smell. Patient's mother notes that she has been on antibiotics (Augmentin, Cephalexin) since mid-January. Patient notes that each time they hang a new bag on her IV she has an episode of profuse diarrhea. Denies chest pain, dyspnea, headache, or lightheadedness. 03/24: Patient is feeling improved today, she was out of bed in chair brushing her hair upon arrival. She notes that her nausea and diarrhea have decreased in severity and that she was able to get some sleep overnight due to the impro vement of her symptoms. Patient endorses ongoing flank and lower abdominal pain, but denies any fevers, chills, chest pain, dyspnea, or dysuria. She denies headaches or lightheadedness. Patient is tolerating her antibiotics well and continues to maintain an appetite. Review of Systems Review of Systems: See HPI Physical Exam Physical Exam: Gen: NAD, alert, interactive HEENT: Supple, no LAD, no thyromegaly Resp:Non-labored, no wheezing/rhonchi/rales, CTAB CV:RRR, normal S1/S2, no M/R/G Abd: Soft, non-distended, LLQ/suprapubic TTP, active bowels, CVA tenderness (R), no masses Extr: 2+ dp bilaterally, no edema Skin: No rashes lesions or erythema Results & Data Results & Data Vital Signs (Past 12 Hours) Vital Signs Temp Pulse Pulse Resp BP Pulse Ox O2 Del Method 03/24/23 03:20 37.4 C 98 H 14 106/71 98 Room Air 03/24/23 01:08 97 H 03/23/23 22:59 37.2 C 101 H 14 111/62 96 Room Air 03/23/23 21:09 36.9 C 03/23/23 19:26 38.2 C H 104 H 18 122/66 95 Room Air Resident Activity Tracking Resident Involvement: Resident Care Provided Care Provided: Adult Hospital Medicine
[2023-03-24] MEDS: MoRPHine SULFATE 2 MG/ML CARP IV PRN ×3 (07:29→16:42)
[2023-03-24] MEDS: ONDANSETRON INJ 2 MG/ML 2 ML VIAL IV PRN ×3 (07:29→22:54)
[2023-03-24 08:19] LABS: Albumin Globulin Ratio 0.9 (0.9-2); Albumin Level 2.5 gm/dl (3.4-5.0); BUN Creatinine Ratio 7.7 (10-20); Bilirubin,Total 0.3 mg/dl (0.2-1.0); Calcium 8.2 mg/dl (8.6-10.3); Creatinine Clr Calc Pharmacy 132.1 ml/min; Est GFR (African American) 148.1 ml/min; Est GFR (Non-African American) 127.8 ml/min; Globulin 2.8 gm/dl (2.5-4.0); Potassium 3.4 mmol/L (3.5-5.1); Total Protein 5.3 gm/dl (6.0-8.3)
[2023-03-24] MEDS ORDERED: POTASSIUM CHLORIDE CRTAB 20 MEQ TABCR PO STA (09:25)
[2023-03-24] MEDS: cefTRIAXone SODIUM 1,000 MG in DEXTROSE 5% AD-VAN 50 ML IV SCH (14:43)
--- NOTE | 2023-03-24 17:01 | Billing Data ---
Date of Service March 24, 2023 Coding Level of Care Code 58339 SUB INP/OBS CARE MIN
[2023-03-25] MEDS: RASPBERRY SYRUP 5 ML UDP PO SCH ×5 (00:04→23:15)
[2023-03-25] MEDS: VANCOMYCIN HCL 125 MG/2.5ML SOLN PO SCH ×5 (00:04→23:15)
[2023-03-25] MEDS: ACETAMINOPHEN 325 MG TAB PO SCH ×5 (00:05→20:54)
[2023-03-25] MEDS: MoRPHine SULFATE 4 MG/ML 1 ML CARP\\VIAL IV PRN ×3 (02:35→09:55)
[2023-03-25] MEDS: ONDANSETRON INJ 2 MG/ML 2 ML VIAL IV PRN ×2 (04:35→15:32)
[2023-03-25] MEDS: LACTATED RINGER'S 1,000 ML IV SCH ×3 (06:42→22:59)
--- NOTE | 2023-03-25 06:52 | Hospitalist Progress Note ---
Date of Service March 25, 2023 Assessment & Plan (1) Sepsis: Plan: Sepsis a/w Acute R Pyelonephritis - A/w R. Pyelonephritis - Leukocytosis/Fever/Tachycardia + Source (R Pyelonephritis) - Lactate 1.3 (wnl) on admission - Urinalysis - No Nitrites, No Leuk Est, > 30 Epithelial Cells - Started on Empiric Vancomycin/Cefepime - Blood Cultures Pending --- Leukocytosis stable (WBC 18.2) --- Continue Empiric Abx (Cefepime) --- Blood cultures negative at 48 hours (2) Acute pyelonephritis: (3) Obstruction of right ureteropelvic junction (UPJ): Plan: R. UPJ Obstruction - Urology (Dr. Conti) consulted on admission * Recommended conservative management with fluids and abx * Recommended no further imaging at that time - Patient remained stable overnight (no nausea, emesis, or increasing abd pain, vitals stable) - Patient's obstruction most likely 2/2 congenital structure, which is unlikely to be complicating to patient's current clinical picture --- Urology recommending ongoing conservative management (4) C. difficile diarrhea: Plan: - Acute, foul smelling diarrhea noted this morning - History indicates this is patient's third course of antibiotics since January - C diff testing ordered - C Diff Gene positive, toxin positive --- Continue PO Vancomycin 125mg PO QID, tolerating well --- Pain currently managed with Tylenol 650 Q6h, Morphine 2 mg (1-5) and Morphine 4 mg (6-10), will add PO Oxycodone 5 mg for more sustained coverage Plan VTE Prophylaxis - Low risk Diet - Regular Disposition - PCU at present, anticipate discharge to home when symptoms controlled, patient afebrile, and WBC count downtrending Admission and Anticipated Discharge Date Admission Date: March 22, 2023 Supervising Physician Co-Signing Physician Notes I personally examined the patient and verified all fuentes points of history and exam, discussed case, and agree with decision making with Dr Bailey Diarrhea improving. Pain under reasonable control with every 3 hours morphine, but notes whenever the morphine wears off the pain is worse. Pain is lower abdominal, feels like an intestinal pain, definitely worse when she has a bowel movement. Vitals noted, in general she is awake and alert pleasant, fatigued, no distress. HEENT normocephalic atraumatic mucous membranes moist. Breathing unlabored no accessory muscle use good effort. Skin shows no rashes no pallor or icterus. Abdomen soft nondistended, mild tenderness no guarding rebound or rigidity. Sepsisdue to both pyelonephritis and C. difficile colitiscontinue ceftriaxone and p.o. vancomycin. Suspect she was more septic from C. difficile than pyelo at this point. overall improving. Trial of p.o. pain meds in front of IVhopefully may last a bit longer. Otherwise as above Subjective Mandy Friedman is a 22F with no known past medical history who presented for evaluation of right flank pain and was found to have right sided pyelonephritis and UPJ obstruction. 03/25: Mandy continues to improve, overall she is feeling like she has more energy and is having less fevers/chills. The amount of bowel movements she is having has decreased. She continues to endorses lower abdominal pain and right flank pain, but states this is not worse. She is concerned that her pain is not controlled, discussed transition to PO pain control and patient noted she didn't feel ready. She notes that her nausea is well maintained with medication. Review of Systems Review of Systems: See HPI Physical Exam Physical Exam: Gen: NAD, alert, interactive HEENT: Supple, no LAD, no thyromegaly Resp:Non-labored, no wheezing/rhonchi/rales, CTAB CV:RRR, normal S1/S2, no M/R/G Abd: Soft, non-distended, RLQ/suprapubic TTP, active bowels, CVA tenderness (R), no masses Extr: 2+ dp bilaterally, no edema Skin: No rashes lesions or erythema Results & Data Results & Data Vital Signs (Past 12 Hours) Vital Signs Temp Pulse Pulse Resp BP BP Pulse Ox 03/25/23 02:40 36.6 C 77 16 110/66 96 03/24/23 22:00 84 03/24/23 22:35 36.5 C 82 18 114/70 99 03/24/23 19:15 03/24/23 19:28 36.5 C 75 18 115/67 99 O2 Del Method 03/25/23 02:40 Room Air 03/24/23 22:00 03/24/23 22:35 Room Air 03/24/23 19:15 Room Air 03/24/23 19:28 Room Air Resident Activity Tracking Resident Involvement: Resident Care Provided Care Provided: Adult Hospital Medicine
--- NOTE | 2023-03-25 07:13 | Urology Progress Note ---
Date of Service March 25, 2023 Assessment & Plan (1) Nausea & vomiting: (2) Obstruction of right ureteropelvic junction (UPJ): (3) C. difficile diarrhea: Plan 22yo/F with a likely chronic right UPJ obstruction admitted from clinic due to concern for sepsis. No acute urologic intervention at this time. Patient subjectively is improving. She remains afebrile with stable vitals. Suspect her leukocytosis is most likely related to her C. difficile. This UPJ obstruction is likely been chronic and something she has had for numerous years. Ideally would not put a stent in place as this will affect further imaging work-up and possible surgical repair. The ureteral stent placement would also be very challenging due to her dilated and tortuous ureter and may not be successful, which would then result in her needing to be transferred for right nephrostomy tube. Continue antibiotics and treating for C. difficile. Urology will continue to follow peripherally. Likely will get outside nuclear medicine Lasix scan to evaluate both function and for obstruction. This will determine if she needs a right pyeloplasty versus a nephrectomy. - Discussed plan with patient and mother today Admission and Anticipated Discharge Date Admission Date: March 22, 2023 Subjective No acute issues overnight. Afebrile with stable vitals. Pain appropriately controlled. Leukocytosis stable at 18.21. Creatinine stable at 0.58. Blood cultures no growth to date. Patient subjectively reports feeling well. Review of Systems Review of Systems: 14 point review of systems negative outside of what is listed above in HPI Physical Exam Physical Exam: General: Alert and oriented, no acute distress HEENT: Normocephalic, mucous membranes moist Pulmonary: Nonlabored respirations Abdomen: Nondistended, soft, nontender. No CVA tenderness. Extremities: Moves all 4 spontaneously Neuro: No gross deficits Skin: Warm, dry, no rashes noted Results & Data Vital Signs (Past 12 Hours) Vital Signs Temp Pulse Pulse Resp BP BP Pulse Ox 03/25/23 02:40 36.6 C 77 16 110/66 96 03/24/23 22:00 84 03/24/23 22:35 36.5 C 82 18 114/70 99 03/24/23 19:15 03/24/23 19:28 36.5 C 75 18 115/67 99 O2 Del Method 03/25/23 02:40 Room Air 03/24/23 22:00 03/24/23 22:35 Room Air 03/24/23 19:15 Room Air 03/24/23 19:28 Room Air PG Care Time/CCT Total # of Minutes Spent Total Time Spent with Patient: Total time spent is greater than 50% in coordination of care (as documented) at patient's floor/unit and/or counseling patient: Coding Level of Care Code 69228 SUB INP/OBS CARE 2/35MIN Diagnoses Nausea & vomiting R11.2 Obstruction of right ureteropelvic junction (UPJ) N13.5 C. difficile diarrhea A04.72
[2023-03-25 08:29] LABS: Hematocrit (blood only) 30.2 % (37.0-47.0); Hemoglobin 10.1 g/dl (12.0-16.0); Mean Corpuscular Hgb Conc 33.4 g/dL (32.0-36.0); Mean Corpuscular Volume 92.6 fL (80.0-100.0); Mean Platelet Volume 9.5 fL (9.4-12.4); Platelet Count 372 K/uL (130-400); RDW Coefficient of Variation 13.7 % (11.5-14.5); RDW Standard Deviation 46.6 fL (36.4-46.3); Red Blood Count 3.26 M/uL (4.20-5.40); White Blood Count 18.21 K/ul (4.8-10.8)
[2023-03-25 08:44] LABS: Anion Gap 6 (3-11); BUN Creatinine Ratio 8.6 (10-20); Blood Urea Nitrogen 5 mg/dl (6-23); Calcium 8.3 mg/dl (8.6-10.3); Carbon Dioxide 29 mmol/L (21-32); Chloride 102 mmol/L (98-107); Creatinine Clr Calc Pharmacy 148.1 ml/min; Est GFR (African American) > 150.0 ml/min; Est GFR (Non-African American) 132.7 ml/min; Glucose 97 mg/dl (70-99(Fasting)); Potassium 3.7 mmol/L (3.5-5.1); Sodium 137 mmol/L (136-145)
[2023-03-25] MEDS: oxyCODONE HCL IR 5 MG TAB (IMMEDIATE RELEASE) PO PRN ×2 (13:07→21:46)
--- NOTE | 2023-03-25 14:59 | Billing Data ---
Date of Service March 25, 2023 Coding Level of Care Code 61138 SUB INP/OBS CARE
[2023-03-25] MEDS: cefTRIAXone SODIUM 1,000 MG in DEXTROSE 5% AD-VAN 50 ML IV SCH (15:04)
[2023-03-26] MEDS: ACETAMINOPHEN 325 MG TAB PO SCH ×5 (02:22→20:03)
[2023-03-26] MEDS: ONDANSETRON INJ 2 MG/ML 2 ML VIAL IV PRN ×2 (04:02→20:12)
[2023-03-26 06:18] LABS: Hemoglobin 10.3 g/dl (12.0-16.0); Mean Corpuscular Hemoglobin 30.9 pg (25.0-34.0); Mean Corpuscular Hgb Conc 34.3 g/dL (32.0-36.0); Mean Corpuscular Volume 90.1 fL (80.0-100.0); Platelet Count 519 K/uL (130-400); RDW Coefficient of Variation 13.6 % (11.5-14.5); Red Blood Count 3.33 M/uL (4.20-5.40); White Blood Count 18.82 K/ul (4.8-10.8)
[2023-03-26] MEDS: MoRPHine SULFATE 4 MG/ML 1 ML CARP\\VIAL IV PRN (06:21)
[2023-03-26] MEDS: LACTATED RINGER'S 1,000 ML IV SCH ×2 (06:21→17:15)
[2023-03-26] MEDS: VANCOMYCIN HCL 125 MG/2.5ML SOLN PO SCH ×4 (06:27→23:03)
[2023-03-26] MEDS: RASPBERRY SYRUP 5 ML UDP PO SCH ×4 (06:27→23:03)
[2023-03-26 06:34] LABS: Anion Gap 7 (3-11); BUN Creatinine Ratio 9.6 (10-20); Blood Urea Nitrogen 5 mg/dl (6-23); Calcium 8.1 mg/dl (8.6-10.3); Carbon Dioxide 28 mmol/L (21-32); Chloride 102 mmol/L (98-107); Creatinine Clr Calc Pharmacy 163.8 ml/min; Est GFR (African American) > 150.0 ml/min; Est GFR (Non-African American) 137.5 ml/min; Glucose 98 mg/dl (70-99(Fasting)); Potassium 3.9 mmol/L (3.5-5.1); Sodium 137 mmol/L (136-145)
--- NOTE | 2023-03-26 07:01 | Hospitalist Progress Note ---
Date of Service March 26, 2023 Assessment & Plan (1) Sepsis: Plan: Sepsis a/w Acute R Pyelonephritis - A/w R. Pyelonephritis - Leukocytosis/Fever/Tachycardia + Source (R Pyelonephritis) - Lactate 1.3 (wnl) on admission - Urinalysis - No Nitrites, No Leuk Est, > 30 Epithelial Cells - Started on Empiric Vancomycin/Cefepime - Blood Cultures Pending - Blood cultures negative --- Leukocytosis stable (WBC 18) --- Continue Empiric Abx (Cefepime) - will anticipate 10 day course --- Discontinue IVF --- ID Consulted at patient's request: Recommending repeat CTAP * Repeat CTAP 03/[address] original [address] scan from [facility] * New evidence of colitis present, which is consistent with patient's clinical presentation (2) Acute pyelonephritis: (3) Obstruction of right ureteropelvic junction (UPJ): Plan: R. UPJ Obstruction - Urology (Dr. Conti) consulted on admission * Recommended conservative management with fluids and abx * Recommended no further imaging at that time - Patient remained stable overnight (no nausea, emesis, or increasing abd pain, vitals stable) - Patient's obstruction most likely 2/2 congenital structure, which is unlikely to be complicating to patient's current clinical picture --- Urology recommending ongoing conservative management, consider outpatient imaging when clinically recovered from current infection (4) C. difficile diarrhea: Plan: - Acute, foul smelling diarrhea noted this morning - History indicates this is patient's third course of antibiotics since January - C diff testing ordered - C Diff Gene positive, toxin positive - Continue current pain management with scheduled Tylenol and preference for PO Oxycodone --- Continue PO Vancomycin 125mg PO QID, tolerating well Plan VTE Prophylaxis - Low risk Diet - Regular Disposition - PCU at present, anticipate discharge to home when pain controlled and tolerating PO intake, stable for downgrade Admission and Anticipated Discharge Date Admission Date: March 22, 2023 Supervising Physician Co-Signing Physician Notes I personally examined the patient and verified all fuentes points of history and exam, discussed case, and agree with decision making with Dr Bailey requested ID consult - dw dr gallardo, input greatly appreciated, CT done - reviewed with radiologist, input appreciated as well. feeling a bit better. Vitals noted, in general she is awake and alert pleasant, fatigued, no distress. HEENT normocephalic atraumatic mucous membranes moist. Breathing unlabored no accessory muscle use good effort. Skin shows no rashes no pallor or icterus. Sepsisdue to both pyelonephritis and C. difficile colitiscontinue ceftriaxone and p.o. vancomycin. Suspect she was more septic from C. difficile than pyelo at this point. overall improving. hopefully home soon. outpt f/u for chronically obstructed kidney Otherwise as above Subjective Mandy Friedman is a 22F with no known past medical history who presented for evaluation of right flank pain and was found to have right sided pyelonephritis and UPJ obstruction. 03/26: Mandy notes that her pain and nausea are improving, she noted that she was due a few hours ago for PO pain medicine, but felt 'well controlled' so she hadn't taken any yet. She does note that she is having swelling in her feet and believes she is more bloated today. Of note thought, patient also started her period today. Patient notes that she had some fevers overnight, but that she did not take her Tylenol. She continues to urinate regularly and her frequency of bowel movements (diarrhea) has diminished. Patient's mother was at bedside, she requests that patinet be evaluated by infec tious disease specialist. Discussed role of ID specialist, family elected to proceed. Review of Systems Review of Systems: See HPI Physical Exam Physical Exam: Gen: NAD, alert, interactive HEENT: Supple, no LAD, no thyromegaly Resp:Non-labored, no wheezing/rhonchi/rales, CTAB CV:RRR, normal S1/S2, no M/R/G Abd: Soft, mild lower abdominal distension, RLQ/suprapubic TTP, active bowels, CVA tenderness (R) diminished, no masses Extr: 2+ dp bilaterally, no edema Skin: No rashes lesions or erythema Results & Data Results & Data Vital Signs (Past 12 Hours) Vital Signs Temp Pulse Pulse Resp BP Pulse Ox O2 Del Method 03/26/23 03:46 37.9 C H 79 18 107/68 94 Room Air 03/25/23 22:03 83 03/25/23 23:10 36.6 C 82 16 99/57 L 96 Room Air 03/25/23 19:15 Room Air 03/25/23 19:00 36.5 C 81 20 109/66 99 Room Air Resident Activity Tracking Resident Involvement: Resident Care Provided Care Provided: Adult Hospital Medicine
--- NOTE | 2023-03-26 10:18 | Infectious Disease Consult ---
Date of Consultation March 26, 2023 Assessment & Plan (1) C. difficile diarrhea: (2) Obstruction of right ureteropelvic junction (UPJ): Plan 22 yo F with recent diagnosis of chronic R UPJ obstruction who presented on 03/22 with fevers, chills, pain in her R side, found to have C diff and concern for pyelonephritis. Pt had 2 days of dysuria starting 03/15 which improved with Azo, then began having pain in her R side, for which she presented to [facility] ED on 03/22 where she was diagnosed with a UTI, and CT A/P with contrast showed a chronic R UPJ obstruction, no signs of inflammation. UA not available to view, and UCx was not sent. She was discharged with cefuroxime. She then followed up with Urology on 03/22, at which time she reported worsened R side pain, fevers, chills, nausea, decreased PO intake, so was sent to the ED. On presentation, T 37.9 with WBC 11.47, Cr 0.82, procalcitonin 1.96. A UA demonstrated 1-5 WBC, neg nitrites, neg bacteria. No urine culture was sent. BCx were obtained. She was started on empiric vanc and cefepime. On 03/23, due to la rge amounts of liquid diarrhea, C diff testing was sent and was positive so she was started on PO vanc. The IV vanc and cefepime were narrowed to ceftriaxone to treat pyelonephritis. Urology was consulted and felt she did not need repeat imaging and did not require acute urologic intervention--would not want to place stent as it would affect further imaging work-up and possible future surgical repair, and the stent placement would be challenging due to dilated and tortuous ureter. Pt has had continued leukocytosis to 18 over the last few days, and had a low grade temp of 37.9 overnight. She continues with pain in her R side, with some improvement today. Reassuringly, her diarrhea has improved. I am uncertain about her diagnosis of pyelonephritis, as we are not able to view the urine testing sent at [facility], the CT A/P with contrast on 03/22 did not show signs of infection, her UA here only has 1-5 WBCs (with the caveat that this is after being on cefuroxime), and she does not seem to have flank pain, but rather pain in her R side. Micro: 03/22 BCx x2: NGTD Abx: PO vancomycin 03/23 - present Ceftriaxone 03/23 - present Cefepime 03/22-03/23 IV vanc 03/22 - 03/23 Problems: #C diff infection #? Pyelonephritis #Chronic R UPJ obstruction Recommendations: -CT A/P with contrast to evaluate for source of persistent leukocytosis/low grade temp and evaluate R kidney -Can continue ceftriaxone and PO vanc for now. Anticipate transitioning to PO antibiotics for possible UTI/pyelonephritis (no culture data, but could consider TMP/SMX or cefpodoxime) -Anticipate continuing PO vanc for about 1 week after completing other systemic antibiotics Discussed with primary team. Will continue to follow. Please note that there will be no ID notes over the weekend. If questions or concerns arise, please contact the Infectious Disease Call Center and ask to speak with the covering ID physician. Dr. Cristina Felipe will take over on Wednesday. Consultation Information Consultation was provided via telemedicine using two-way real-time interactive telecommunication between the patient and the telemedicine provider. For the duration of the visit, the provider was performing the assessment from a different facility than the patient. This includesuse of bluetooth stethoscope forauscultationperformed by the telepresenter that the telemedicine provider can hear if described in the physical exam. Establishment Guide contact information: Please call [facility] Call Center . (Phone Number For Physician Use Only) After establishing a telemedicine visit, patient was: Patient was verified with two unique identifiers, Patient/authorized rep acknowledged consent and understanding and Gave permission to continue telehealth session Time Spent with Patient: Initial => 40 min History of Present Illness Reason for Consultation: Pyelonephritis, C diff Attending Physician: Rd Ritter DO History of Present Illness 22 yo F with no significant PMH who presented on 03/22 with fevers, chills, flank pain. She initially began having dysuria on 03/15, for which she took Azo, and her dysuria resolved after 2 days. But after stopping the Azo, she began having R RLQ/R side pain. She presented to [facility] ER on 03/22 where she was diagnosed with a UTI and CT A/P with contrast showed a chronic R UPJ obstruction, no signs of inflammation. UA not available, and UCx not sent. She was discharged with cefuroxime. She followed-up with Urology on 03/22, at which time she reported her R side/flank pain had worsened and she was having fevers, chills, nausea, decreased PO intake. She was sent to the ED for further evaluation. On presentation to the ED, T 37.9 with WBC 11.47, Cr 0.82, procalcitonin 1.96. A UA demonstrated 1-5 WBC, neg nitrites, neg bacteria. No urine culture was sent. BCx were obtained. She was started on empiric vanc and cefepime. On 03/23, was having large amounts of liquid diarrhea, so C diff testing was sent which came back positive so she was started on PO vanc. Patient's mother noted that she has been on antibiotics (Augmentin, cephalexin) since mid-January. The IV vanc and cefepime were narrowed to ceftriaxone on 03/23 to treat pyelonephritis. Urology was consulted and felt she did not need repeat imaging and did not re quire acute urologic intervention--would not want to place stent as it would affect further imaging work-up and possible future surgical repair, and the stent placement would be challenging due to dilated and tortuous ureter. On my evaluation, the pt reports the R "flank" pain is not in her back, but on her R side. It has been very painful, requiring morphine the last few days. However, today is the first day that she notes some improvement and has been able to decline a dose of pain meds. Her diarrhea has been improving over the last few days--she has had 1 BM today and it was partially solid. Her mother expresses concern that she has had multiple infections this year, including mono, Strep C pharyngitis, adenovirus, and now a UTI and C diff. Pt is a student in college and lives with 7 roommates. Pt had a low grade temp of 37.9 overnight. Her WBC has remained stable around 18 for the last 3 days. Allergies Allergy/AdvReac Type Severity Reaction Status Date / Time No Known Allergies Allergy Unverified 03/22/23 13:27 Home Medications Medication Instructions Recorded Confirmed Type cefuroxime axetil 500 mg tablet 500 mg PO BID 03/22/23 03/22/23 History hydrocodone 5 mg-acetaminophen 325 1 tab PO BID PRN Pain 03/22/23 03/22/23 History mg tablet Patient History Medical History No significant medical problems Surgical History No significant past surgical history Social History Smoking Status: Never smoker Second Hand Exposure: No; Do You Dip or Chew Tobacco: No; Hx Alcohol Use: No Hx Substance Use: No Preferred Language: Macedonian Communication Ability: Effective Middle School Tutor Required: No Beliefs That Will Affect Care: None Current Living Situation: Family and Other Current Living Situation Comment: college student Jasmin Feels Safe at Home: Yes Assistive Devices: None Review of System A complete ROS was performed and is negative except as mentioned in the HPI. Physical Exam Physical Exam: GEN: laying in bed in NAD. RESP: No increased work of breathing ABD: soft, mildly distended, tender diffusely to palpation. SKIN: No lesions or rashes on exposed skin. BACK: No CVA tenderness NEURO: Alert and oriented. Answers all questions appropriately. Speech not slurred. PSYCH: Normal mood, affect appropriate. Results & Data Vital Signs (Past 12 Hours) Vital Signs Temp Pulse Resp BP Pulse Ox O2 Del Method 03/26/23 07:57 36.6 C 64 18 119/75 95 Room Air 03/26/23 03:46 37.9 C H 79 18 107/68 94 Room Air 03/25/23 23:10 36.6 C 82 16 99/57 L 96 Room Air Laboratory Results Short CBC 03/26/23 Range/Units 05:57 WBC 18.82 H (4.8-10.8) K/ul Hgb 10.3 L (12.0-16.0) g/dl Hct 30.0 L (37.0-47.0) % Plt Count 519 H (130-400) K/uL BMP 03/26/23 05:57 Sodium 137 Potassium 3.9 Chloride 102 Carbon Dioxide 28 BUN 5 L Creatinine 0.52 L Glucose 98 Calcium 8.1 L Diagnostic Findings 03/18 CT A/P with contrast Findings consistent with chronic UPJ obstruction of R kidney, likely congenital, vs multi-cystic dysplastic kidney on R. No acute inflammatory process. No stone disease Medications Administered Current Inpatient Medications Acetaminophen (Acetaminophen 325 Mg Tab) 650 mg PO Q6H KATINA Stop: 04/24/23 13:59 Last Admin: 03/26/23 08:00 Dose: 650 mg Lactated Ringer's (Lr) 1,000 mls @ 125 mls/hr IV .Q8H KATINA Stop: 04/21/23 22:59 Last Admin: 03/26/23 06:21 Dose: 125 mls/hr Ceftriaxone Sodium 1,000 mg/ (Dextrose) 50 mls @ 100 mls/hr IV Q24H KATINA; Protocol Stop: 04/02/23 14:29 Last Infusion: 03/25/23 15:50 Dose: Infused Morphine Sulfate (Morphine Sulfate 4 Mg/Ml 1 Ml Carp\\Vial) 4 mg IV Q3H PRN PRN Reason: Pain (6,7,8,9,10) Stop: 04/05/23 20:39 Last Admin: 03/26/23 06:21 Dose: 4 mg Morphine Sulfate (Morphine Sulfate 2 Mg/Ml Carp) 2 mg IV Q3H PRN PRN Reason: Pain (1,2,3,4,5) & Pre PT Stop: 04/05/23 20:39 Last Admin: 03/24/23 16:42 Dose: 2 mg Ondansetron HCl (Ondansetron Inj 2 Mg/Ml 2 Ml Vial) 4 mg IV Q6H PRN PRN Reason: Nausea Stop: 04/21/23 20:39 Last Admin: 03/26/23 04:02 Dose: 4 mg Oxycodone HCl (Oxycodone Hcl Ir 5 Mg Tab (Immediate Release)) 5 mg PO Q6H PRN PRN Reason: pain Stop: 04/08/23 11:44 Last Admin: 03/25/23 21:46 Dose: 5 mg Promethazine HCl (Promethazine Hcl 12.5 Mg/10 Ml Udp) 12.5 mg PO Q6H PRN PRN Reason: Nausea And Vomiting Stop: 04/22/23 17:38 Raspberry (Raspberry Syrup 5 Ml Udp) 5 ml PO Q6 KATINA Stop: 04/02/23 12:59 Last Admin: 03/26/23 06:27 Dose: 5 ml Vancomycin HCl (Vancomycin Hcl 125 Mg/2.5ml Soln) 125 mg PO Q6 KATINA Stop: 04/02/23 12:59 Last Admin: 03/26/23 06:27 Dose: 125 mg
[2023-03-26] MEDS: oxyCODONE HCL IR 5 MG TAB (IMMEDIATE RELEASE) PO PRN ×2 (11:37→20:02)
[2023-03-26] MEDS: cefTRIAXone SODIUM 1,000 MG in DEXTROSE 5% AD-VAN 50 ML IV SCH (14:15)
[2023-03-26] MEDS ORDERED: OPTIRAY 320 100ml IV ONE (15:22)
--- NOTE | 2023-03-26 16:50 | CT Scan Report ---
CT SCAN OF THE ABDOMEN AND PELVIS WITH IV CONTRAST CLINICAL HISTORY: C. Difficile colitis. Pyelonephritis. COMPARISON STUDY: Abdominal CT dated 03/18/2023. TECHNIQUE: Following the IV administration of 90 cc of Optiray 350, CT scan of the abdomen and pelvi s is performed from the lung bases to the proximal femora. Images are reviewed in the axial, sagittal , and coronal planes. IV contrast was administered without complication. A dose lowering technique wa s utilized adhering to the principles of ALARA. CT DOSE: 431.80 mGy.cm FINDINGS: Lung bases: The heart is normal in size and without pericardial effusion. There are small pleural eff usions, right larger than left with dependent atelectasis. Liver: The contrast-enhanced liver is normal in size, contour, and attenuation. There is no intrahepa tic biliary ductal dilatation. The hepatic veins and portal veins are patent. Gallbladder: Unremarkable. Spleen: Normal in size and attenuation. Pancreas: Unremarkable. Adrenal glands: Unremarkable. Kidneys: There is severe right-sided hydronephrosis with marked cortical atrophy of the right kidney. The right ureter is normal in caliber and this is almost certainly chronic. The contrast-enhanced le ft kidney is normal in size and without hydronephrosis. There is diminished enhancement of the right renal parenchyma as compared to the left. Abdominal vasculature: The abdominal aorta is normal in course and caliber. Bowel: There is no bowel obstruction. Enteric contrast reaches the distal small bowel. There is signi ficant wall thickening and edema the colon, greatest involving the cecum. This extends from the cecum to the descending colon with surrounding inflammation and fluid. This is consistent with a nonspecif ic colitis. The colon is normal in caliber. The appendix is well-visualized and normal. Peritoneum: No acute peritoneal free air is seen. There is a small volume of abdominopelvic ascites. Lymphadenopathy: None. Pelvic viscera: The bladder, the uterus, and adnexa are normal as visualized noting bilateral ovarian follicles. Skeletal structures: No lytic or blastic lesions are seen. Soft tissues: There is body wall edema. IMPRESSION: 1. There is evidence of a nonspecific colitis, greatest involving the right colon. This would be cons istent with the reported history of Clostridium difficile infection. 2. The colon is normal in caliber. 3. There is evidence of fluid overload with a small volume of abdominopelvic ascites, body wall edema , and small pleural effusions. 4. There is severe hydronephrosis and marked cortical atrophy of the right kidney. This is almost cer tainly chronic. 5. The left kidney is normal. 6. Additional findings as above. ACT 112: Negative or not required by law. Electronically signed by: Ze Ocampo M.D. 03/26/2023 4:47 PM
--- NOTE | 2023-03-26 18:15 | Billing Data ---
Date of Service March 26, 2023 Coding Level of Care Code 46846 SUB INP/OBS CARE MIN
[2023-03-27] MEDS: ACETAMINOPHEN 325 MG TAB PO SCH ×3 (02:08→13:17)
[2023-03-27] MEDS: oxyCODONE HCL IR 5 MG TAB (IMMEDIATE RELEASE) PO PRN (04:51)
[2023-03-27] MEDS: RASPBERRY SYRUP 5 ML UDP PO SCH ×3 (04:52→16:46)
[2023-03-27] MEDS: VANCOMYCIN HCL 125 MG/2.5ML SOLN PO SCH ×3 (04:52→16:46)
[2023-03-27] MEDS: ONDANSETRON INJ 2 MG/ML 2 ML VIAL IV PRN (04:52)
[2023-03-27 06:24] LABS: Hematocrit (blood only) 29.2 % (37.0-47.0); Hemoglobin 9.9 g/dl (12.0-16.0); Mean Corpuscular Hemoglobin 31.2 pg (25.0-34.0); Mean Corpuscular Hgb Conc 33.9 g/dL (32.0-36.0); Mean Corpuscular Volume 92.1 fL (80.0-100.0); Mean Platelet Volume 8.9 fL (9.4-12.4); Platelet Count 569 K/uL (130-400); RDW Coefficient of Variation 13.9 % (11.5-14.5); RDW Standard Deviation 47.4 fL (36.4-46.3); Red Blood Count 3.17 M/uL (4.20-5.40); White Blood Count 20.75 K/ul (4.8-10.8)
[2023-03-27 06:28] LABS: Anion Gap 7 (3-11); Blood Urea Nitrogen 4 mg/dl (6-23); Calcium 8.3 mg/dl (8.6-10.3); Carbon Dioxide 29 mmol/L (21-32); Chloride 100 mmol/L (98-107); Creatinine Clr Calc Pharmacy 170.4 ml/min; Est GFR (African American) > 150.0 ml/min; Est GFR (Non-African American) 139.3 ml/min; Glucose 97 mg/dl (70-99(Fasting)); Potassium 3.9 mmol/L (3.5-5.1); Sodium 136 mmol/L (136-145)
--- NOTE | 2023-03-27 07:05 | Hospitalist Progress Note ---
Date of Service March 27, 2023 Assessment & Plan (1) Sepsis: Plan: Sepsis a/w Acute R Pyelonephritis - A/w R. Pyelonephritis - Leukocytosis/Fever/Tachycardia + Source (R Pyelonephritis) - Lactate 1.3 (wnl) on admission - Urinalysis - No Nitrites, No Leuk Est, > 30 Epithelial Cells - Started on Empiric Vancomycin/Cefepime - Blood Cultures Pending - Blood cultures negative --- Leukocytosis slight bump today from WBC 18 to 20. No urinary symptoms today, --- Continue IV Ceftriaxone --- ID Consulted at patient's request: continue antibiotics course for 7-10 days from 03/22. Can transition from IV Ceftriaxone to PO antibiotics, continue vancomycin for 7 additional days R. UPJ Obstruction - Urology (Dr. Conti) consulted on admission * Recommended conservative management with fluids and abx * Recommended no further imaging at that time - Patient remained stable overnight (no nausea, emesis, or increasing abd pain, vitals stable) - Patient's obstruction most likely 2/2 congenital structure, which is unlikely to be complicating to patient's current clinical picture --- Urology recommending ongoing conservative management, consider outpatient imaging when clinically recovered from current infection C. Difficile Diarrhea - Acute, foul smelling diarrhea noted this morning - History indicates this is patient's third course of antibiotics since January - C diff testing ordered - C Diff Gene positive, toxin positive - Continue current pain management with scheduled Tylenol and preference for PO Oxycodone --- Continue PO Vancomycin 125mg PO QID, tolerating well VTE Prophylaxis - Low risk Diet - Regular Disposition - PCU at present, anticipate discharge to home when pain controlled and tolerating PO intake, stable for downgrade (2) Acute pyelonephritis: (3) Obstruction of right ureteropelvic junction (UPJ): (4) C. difficile diarrhea: Admission and Anticipated Discharge Date Admission Date: March 22, 2023 Juan M Friedman is a 22F with no known past medical history who presented for evaluation of right flank pain and was found to have right sided pyelonephritis and UPJ obstruction. 03/27: Patient was seen and examined at bedside. Her mother was also present during the encounter. Mandy states she is feeling "ok" this morning, has had 1 episode of diarrhea so far today. Endorses abdominal cramping prior to the diarrhea. Notes that her stools have become gradually less formed over the past several days. But has been tolerating food and liquids well. States that the pain medication has been helping. Denies any dysuria or other urinary symptoms. Review of Systems Review of Systems: As per HPI Physical Exam Constitutional: WD/WN, vitals as above Eyes: Anicteric sclera ENMT: External ears and nose normal, moist mucous membanes Respiratory: normal respiratory effort, lungs clear to auscultation Cardiovascular: RRR, no murmur, no edema Gastrointestinal (Abdomen): Abdomen soft but mild distension, +Bowel sounds Musculoskeletal: Moves all limbs independently Skin: no rashes, warm and dry Psychiatric: A+Ox3, euthymic affect Results & Data Results & Data Vital Signs (Past 12 Hours) Vital Signs Temp Pulse Resp BP Pulse Ox O2 Del Method 03/26/23 21:21 36.9 C 61 16 112/74 96 Room Air Resident Activity Tracking Resident Involvement: Resident Care Provided Care Provided: Adult Hospital Medicine
[2023-03-27] MEDS: cefTRIAXone SODIUM 1,000 MG in DEXTROSE 5% AD-VAN 50 ML IV SCH (15:16)
--- NOTE | 2023-03-27 16:56 | Discharge Summary ---
Date of Service March 27, 2023 Admission HPI Per Admitting Provider Mandy Friedman is a 22 year old female who presents to the ER with fever, chills and flank pain. Initially symptoms of dysuria started on Wednesday (7 days ago). Initially she took azo which helped her symptoms for 2 days. After stopping Azo she started having right abdominal and flank pain. She went to [facility] ER where she was diagnosed with a UTI and CT showed chronic right UPJ obstruction. She was discharged on cefuroxime. Unfortunately UA was not cultured. She was discharged from the ER with advice to follow up with urology. Unfortunately the urologist she was set up with did have an open appointment until March. Eventually she managed to get an appointment with Dr Lockwood today. Her symptoms of right flank pain have in the interim become more severe and she started having fever and chills over the weekend. Dr Lockwood appropriately sent the patient to the ER for further evaluation. UA was taken in the office but I ahve been unable to track down this sample to be cultured. Admission Exam Per Admitting Provider Constitutional: WD/WN, vitals as above Eyes: PERRL, conjunctivae normal, anicteric sclerae ENMT: external ear and nose normal, oropharynx normal Neck: trachea midline, no thyromegaly Respiratory: normal respiratory effort, lungs clear to auscultation Cardiovascular: RRR, no murmur, no edema Gastrointestinal (Abdomen): Inspection/Auscultation: abdomen normal to inspection; abdomen not distended Percussion/Palpation: + abdomen tender (Right sided) and abdomen soft; no guarding and abdomen not rigid Musculoskeletal: no cyanosis or clubbing, extremities motor strength 5/5 Skin: no rashes, warm and dry Neurologic: moves all extremities and awake; not confused Psychiatric: A+Ox3, euthymic affect Genitourinary: Principal Diagnosis Sepsis with Pyelonephritis, R UPJ obstruction, C.Diff Discharge Exam Constitutional WD/WN, vitals as above Eyes Anicteric Sclerae ENMT External ears and nose normal. Moist mucous membranes Respiratory normal respiratory effort, lungs clear to auscultation Cardiovascular RRR, no murmur, no edema Gastrointestinal (Abdomen) Abdomen soft but mild distension. +Bowel sounds. Musculoskeletal Moves all limbs independently Skin no rashes, warm and dry Psychiatric A+Ox3, euthymic affect Discharge Data Allergies Allergy/AdvReac Type Severity Reaction Status Date / Time No Known Allergies Allergy Unverified 03/22/23 13:27 Consultations 03/22/23 18:04 ED Decision to Admit Stat 03/22/23 20:40 Consult Urology Routine 03/26/23 08:36 Consult Infectious Diseases Routine Ordered Studies 03/26/23 11:57 CT abd pelvis oral and IV con Routine Abdomen/Pelvis CT 03/26/23 11:57 CT SCAN OF THE ABDOMEN AND PELVIS WITH IV CONTRAST CLINICAL HISTORY: C. Difficile colitis. Pyelonephritis. COMPARISON STUDY: Abdominal CT dated 03/18/2023. TECHNIQUE: Following the IV administration of 90 cc of Optiray 350, CT scan of the abdomen and pelvis is performed from the lung bases to the proximal femora. Images are reviewed in the axial, sagittal, and coronal planes. IV contrast was administered without complication. A dose lowering technique was utilized adhering to the principles of ALARA. CT DOSE: 431.80 mGy.cm FINDINGS: Lung bases: The heart is normal in size and without pericardial effusion. There are small pleural effusions, right larger than left with dependent atelectasis. Liver: The contrast-enhanced liver is normal in size, contour, and attenuation. There is no intrahepatic biliary ductal dilatation. The hepatic veins and portal veins are patent. Gallbladder: Unremarkable. Spleen: Normal in size and attenuation. Pancreas: Unremarkable. Adrenal glands: Unremarkable. Kidneys: There is severe right-sided hydronephrosis with marked cortical atrophy of the right kidney. The right ureter is normal in caliber and this is almost certainly chronic. The contrast-enhanced left kidney is normal in size and without hydronephrosis. There is diminished enhancement of the right renal parenchyma as compared to the left. Abdominal vasculature: The abdominal aorta is normal in course and caliber. Bowel: There is no bowel obstruction. Enteric contrast reaches the distal small bowel. There is significant wall thickening and edema the colon, greatest involving the cecum. This extends from the cecum to the descending colon with surrounding inflammation and fluid. This is consistent with a nonspecific colitis. The colon is normal in caliber. The appendix is well-visualized and normal. Peritoneum: No acute peritoneal free air is seen. There is a small volume of abdominopelvic ascites. Lymphadenopathy: None. Pelvic viscera: The bladder, the uterus, and adnexa are normal as visualized noting bilateral ovarian follicles. Skeletal structures: No lytic or blastic lesions are seen. Soft tissues: There is body wall edema. IMPRESSION: 1. There is evidence of a nonspecific colitis, greatest involving the right colon. This would be consistent with the reported history of Clostridium difficile infection. 2. The colon is normal in caliber. 3. There is evidence of fluid overload with a small volume of abdominopelvic ascites, body wall edema, and small pleural effusions. 4. There is severe hydronephrosis and marked cortical atrophy of the right kidney. This is almost certainly chronic. 5. The left kidney is normal. 6. Additional findings as above. ACT 112: Negative or not required by law. Electronically signed by: Ze Ocampo M.D. 03/26/2023 4:47 PM Hospital Course (1) C. difficile diarrhea: (2) Acute pyelonephritis: (3) Complicated UTI (urinary tract infection): (4) Sepsis: Plan Sepsis a/w Acute R Pyelonephritis Mandy was diagnosed with R. Pyelonephritis, later developed Leukocytosis/Fever/Tachycardia + Source (R Pyelonephritis)= sepsis. Lactate 1.3 (wnl) on admission, Urinalysis - No Nitrites, No Leuk Est, > 30 Epithelial Cells. She was initially started on Empiric Vancomycin/Cefepime. Blood Cultures negative. She had a Leukocytosis but stable (WBC 18-20). Infectious Disease was later consulted, recommended repeat CTAP which also showed new evidence of colitis- considering patient was also having diarrheal symptoms at this time, findings consisitent. Advised to start 7-10 day course of antibiotics (from 03/22) and continue Vancomycin for 7 days after finishing the other oral antibiotics as she was also diagnosed with c.diff. Patient had clinical imp rovement at time of discharge, was eating, drinking, and pain controlled. [facility] Obstruction Urology (Dr. Conti) consulted on admission. Recommended conservative management with fluids and abx, recommended no further imaging at that time. Patient's obstruction most likely 2/2 congenital structure, which is unlikely to be complicating to patient's current clinical picture. Consider outpatient imaging when clinically recovered from current infection. C. Difficile Diarrhea Acute, foul smelling diarrhea earlier in admission, history indicates this is patient's third course of antibiotics since January. C diff testing ordered, C Diff Gene positive, toxin positive. Continued pain management with scheduled Tylenol and preference for PO Oxycodone. Started on PO Vancomycin, patient noted some increased loose consistency of stools but decreased number of bowel movements at time of discharge. Total Time Total Time Spent Total Time Spent (In Minutes): . >30 Discharge Plan Discharge Items Patient Disposition: Home - Self-Care Reason For Visit: UTI SEPSIS Discharge Diagnosis: UTI Sepsis, C.Diff Activity: Per Instructions section Non-emergency contact: Primary Care Provider and Urologist Call non-emergency contact if: you have any medication questions, your symptoms worsen and your temperature is above 101 Follow-up/Referrals: Lit Johnson [Primary Care Provider] - Diet: Regular Addtl Attending Provider Instructions: kidney infection (pyelonephritis) -fortunately this getting better; since you were getting better nicely on ceftriaxone (a third generation cephalosporin) we'll finish out treatment with cefpodoxime (a very similar medicine - another third generation cephalosporin) - we'll treat the kidney infection for a total of 10 days (you've had 5 days of ceftriaxone counting today, so you'll start the cefpodoxime tomorrow (03/28) at bedtime (the ceftriaxone lasts 24hrs) -continue to follow up with urology for the kidney itself - given that it looks quite stretched/distended chronically; they're planning on doing some tests to look at how viable the kidney tissue is that is not stretched/distended and will guide you from there. even if we see that it's not very viable, remember that we're built with so much reserve kidney function that as long as you don't do things that lead to diminished kidney function (smoking, diabetes, uncontrolled hypertension -- stuff that can be avoided by healthy eating/exercise and (obviously) not smoking) you can be totally fine for the next hundred years. Cdiff colitis (colon infection) -this really seems to have been the main thing making you sick while you were here. Cdiff is unfortunately pretty nasty - like we discussed, it's an infection that "starts at a 7/10" - but fortunately it is getting better. -i would expect that over the next ~2 weeks your stools will slowly become more formed and less frequent; even in spite of that it might take longer than that to totally get back to "truly normal" - but as long as you're seeing more or less day-to-day progress (or at least progress that you can clearly see improvement every other day) you'll know you're on the right track -we're treating the Cdiff with vancomycin (125mg 4 times a day) - it's important to get in all 4 doses a day (which IS really annoying, i'm sorry!) - so assume you're going to forget doses and take steps to be proactive about that: set your phone as a reminder, keep track of the doses you took so that you remember how many doses you've gotten in that day, keep some of the pills with you even when you're out and about so when you realize you've forgotten you have some wi th you, and if you're "due" for another dose when you realize you forgot a dose before -- just take them both (even if it's at the same time) -since being on the cefpodoxime for the kidney infection can obviously keep the Cdiff going, we'll treat with the vancomycin for a week AFTER you're done with the cefpodoxime (so another 12 days with the vancomycin) (i did send in 14 on the Rx - that's to build in "margin of error" so that if any additional treatment is needed you already have some on hand to shorten "turnaround time") -Cdiff is somewhat contagious with the spores it forms --> it's not "wildly contagious" in that anyone exposed will get an infection; however, if someone is exposed and then is on antibiotics in the near future they'll have a fairly high risk of developing an infection. similarly anyone who's really immune compromised (such as someone on chemotherapy) could develop an infection just from exposure alone. to reduce the risk - pick one bathroom. when you're done using the bathroom wash your hands with soap and water (alcohol based hand sanitizers do not kill the spores, soap and water emulsifies them and washes them down the drain). bleach does kill the spores - so have clorox wipes in the bathroom and then after you've washed your hands, wipe off the faucet handles, toilet handle and seat, light switch, doorknob, etc. -when people get better with treatment, it's really impossible to tell if they're getting better because we're killing the Cdiff, or if it's because the Cdiff is forming spores to "hide" from the vancomycin (Cdiff doesn't make toxin when it's in spore form). because of that, it's really important to pay attention to your bowels the first week to two weeks AFTER you're off of the vancomycin. if there is a recurrence, it would almost certainly come then. if you were to have a recurrence, i would want you to start right back on the vancomycin (to reign things in) while your doc then works on further treatment plans (usually either extended vancomycin or Dificid). -over the next year, if you were to need antibiotics for something else (such as a recurrent kidney infection), there's good evidence to just go right back on vancomycin at the same time you're on the "regular" antibiotics. generically speaking, it would be about a 20% chance of recurrence just from being on the "regular" antibiotics, and only about a 4% chance of recurrence being on the vancomycin again as well. follow up: since there's so much going on with you, i would recommend following with your regular doc once a week for a while (at least until it's clear things are good/getting back towards "good as new" and definitely at least until you're off of all antibiotics for 1-2 weeks). we'd expect them to see how you're feeling/check about any urinary symptoms/flank pain as it relates to the kidney infection, and ask about belly pain/diarrhea/cramping as it relates to the Cdiff, as well as nausea as it relates to both. also we'd expect weekly labwork to trend things back to normal (especially following your white blood cells - like we talked about there, white counts can be really slow to improve after Cdiff, but we definitely want to follow it back to normal, even if it takes a month). pain and nausea -you can take the ondansetron (zofran) up to every 6 hours as needed for nausea. it's a dissolving tablet, and zofran is an awfully "clean" medication as it relates to side effects -you can take the oxycodone up to every 6 hours as needed for pain. for this one, it will be better to take a little bit of time to decide if you definitely need it before taking a dose since it can cause problems with physical dependency, grogginess/etc (extremely doubtful to be real concerns on such a short course of treatment, but stranger things have happened). *as of typing these instructions, i haven't gotten to send the oxycodone - it requires a special PIN# from a keyfob that i left in our office downstairs - but it will be the first thing i do when i get back downstairs shortly* the computer system was glitching as it relates to the previously prescribed pain medicine - hydrocodone/acetaminophen. i wanted to click to stop it, but the system for some reason would not recognize that. in our system, if each medicine isn't reconciled it will not let us finish the discharge. in order to get you home, i had to click to continue it, but obviously we would not want you on both the oxycodone and the hydrocodone. the oxycodone is a bit stronger, of note Pending Studies at Discharge: No Stand-Alone Forms: My [facility] Collisionable, Smoking Cessation Medications and DC Order Prescriptions: New cefpodoxime 200 mg tablet 200 mg PO BID Qty: 10 0RF Rx Instructions: must administer with a meal/food vancomycin 125 mg capsule 125 mg PO QID 14 Days Qty: 56 0RF ondansetron 4 mg tablet,disintegrating 4 mg PO Q6H PRN (Reason: nausea and vomiting) Qty: 30 0RF oxycodone 5 mg tablet 5 mg PO Q6H PRN (Reason: pain) Qty: 20 0RF Continued hydrocodone-acetaminophen 5-325 mg tablet 1 tab PO BID PRN (Reason: Pain) Discontinued cefuroxime axetil 500 mg tablet 500 mg PO BID Discharge Orders: Discharge Order (Routine); Ordered 03/27/23 Ordered By: Rd Ritter Admission Data Admit Date/Time: 03/22/23 18:27 Attending Provider: Rd Ritter Admit Provider: Iron Daniels Primary Care Provider: Lit Johnson Other Providers: Iron Daniels ; Destin Cotto ; Candelaria Hess ; Sarwat Stiles ; Kira Bob ; Quirino Ko ; Miranda Avendaño ; Cristina Felipe ; Aminata Dumont ; Vandana Alfaro ; Neela Moya Other Interventions: Discharge Summary Assessment (RN) Last Done: 03/27/23 16:16 Supervising Physician Co-Signing Physician Notes I personally examined the patient and verified all fuentes points of history and exam, discussed case, and agree with decision making with Dr Fuller Feeling better overall. Stools still loose, but more formed than before, only 2 bowel movements today. Abdominal pain doing better. She notes that she is "overdue" for pain and nausea meds and doing okayi.e. she is spacing out time in between doses and doing well. Vitals noted, in general she is awake and alert pleasant, fatigued, no distress. HEENT normocephalic atraumatic mucous membranes moist. Breathing unlabored no accessory muscle use good effort. Skin shows no rashes no pallor or icterus. Abdomen soft nondistended nontender. Sepsisdue to both pyelonephritis and C. difficile colitiscontinue cephalosporin and p.o. vancomycin. Suspect she was more septic from C. difficile than pyelo at this point. overall improving. Stable for home, see extensive instructions prepared by myself. outpt f/u for chronically obstructed kidney Otherwise as above
--- NOTE | 2023-03-27 19:03 | Billing Data ---
Date of Service March 27, 2023 Coding Level of Care Code 98692 INP/OBS DISCH >30 MIN
== END 2023-03-27 16:51 | disposition home or self-care (01) | DRG 872 ==
LOC: ED 14:30 → 2E 18:27 → SUATTDRO 18:27 → 2E 20:08 → 3W 03-26 18:38